=== PATIENT | female | born 1960 | race Caucasian/White ===

== ENCOUNTER → 2019-06-14 09:31 | Outpatient (CLI) | payer OTHER, SELFPAY ==
[2019-06-14 10:24] LABS: Hemoglobin A1C% w Est Avg Glu 7.7 % (4.0-6.0)
[2019-06-14 10:43] LABS: Alanine Aminotransferase 20 IU/L (9-52); Albumin 4.4 g/dL (3.5-5.0); Albumin Globulin Ratio 1.4 (1.0-2.8); Alkaline Phosphatase 82 U/L (38-126); Aspartate Aminotransferase 22 IU/L (14-36); BUN Creatinine Ratio 23.3 (6-22); Bilirubin Total 0.4 mg/dL (0.2-1.3); Blood Urea Nitrogen 14 mg/dL (7-17); Calcium 9.8 mg/dL (8.4-10.2); Carbon Dioxide 27 mmol/L (22-32); Chloride 101 mmol/L (98-107); Estimated Glomerular Filt Rate > 60.0 mL/min (>60); Globulin 3.1 g/dL (1.7-4.1); Glucose 148 mg/dL (80-110); HEMOLYSIS < 15 (0-50); Potassium 4.1 mmol/L (3.4-5.1); Sodium 137 mmol/L (137-145); Total Protein 7.5 g/dL (6.3-8.2)
== END ==
PROVIDERS: Nurse Practitioner Family; PCP Physician Assistant; Visit Provider Physician Assistant
DX: E11.65 Type 2 diabetes mellitus with hyperglycemia (principal); E03.9 Hypothyroidism, unspecified; I10 Essential (primary) hypertension
CPT/HCPCS: 36415; 80053; 83036; 84443

== ENCOUNTER → 2019-11-27 11:12 | Outpatient (CLI) | payer OTHER, SELFPAY ==
--- NOTE | 2019-11-27 11:14 | DI.RAD.S_ITS ---
PROCEDURE: XR LUMBAR SPINE 2-3V INDICATIONS: Persistent lower back pain TECHNIQUE: 3 views of the lumbar spine were acquired. COMPARISON: None. FINDINGS: Bones: 5 vag-fxu-[id number] vertebrae are present. No vertebral body compression fractures. No suspicious bony lesions. Moderate to severe disc space narrowing is seen at L5-S1, with associated endplate irregularity and sclerosis. Bridging osteophytes are seen at this level. Mild disc space narrowing is seen at the L1-L2 level and the L4-L5 level. Mild levoconvex scoliotic curvature is noted. No focal AP alignment abnormality is seen. Lower lumbar spine facet arthropathy is seen. Soft tissues: Overlying bowel gas pattern is normal. No suspicious soft tissue calcifications. Atherosclerotic calcification is noted. Cholecystectomy clips are seen. IMPRESSION: Focal L5-S1 degenerative change is seen, with milder degenerative changes seen elsewhere. Dictated by: Anatoliy Siddiqui M.D. on 11/27/2019 at 10:30 Approved by: Anatoliy Siddiqui M.D. on 11/27/2019 at 10:32
== END ==
PROVIDERS: PCP Family Medicine; Referring Provider Family Medicine; Visit Provider Family Medicine
DX: M54.32 Sciatica, left side (principal); M47.817 Spondylosis without myelopathy or radiculopathy, lumbosacral region
CPT/HCPCS: 72100

== ENCOUNTER → 2020-03-06 15:36 | Outpatient (CLI) | payer OTHER, SELFPAY ==
--- NOTE | 2020-03-06 15:38 | DI.RAD.S_ITS ---
PROCEDURE: XR KNEE RT 3V INDICATIONS: Progressive bilateral knee pain TECHNIQUE: 3 views of the knee were acquired. COMPARISON: None. FINDINGS: Bones: Mild/moderate degenerative changes of the right knee are best appreciated within the patellofemoral compartment. Marginal osteophytes are noted. There is no acute fracture or dislocation. No suspicious osseous lesion is identified. Soft tissues: No joint effusion. Chondrocalcinosis of the knee is present. IMPRESSION: 1. Mild to moderate degenerative changes of the right knee. 2. Chondrocalcinosis of the knee may be senescent. Please correlate clinically to exclude the possibility of calcium pyrophosphate deposition disease. Dictated by: Frank Egan M.D. on 03/06/2020 at 15:06 Approved by: Frank Egan M.D. on 03/06/2020 at 15:07
--- NOTE | 2020-03-06 15:38 | DI.RAD.S_ITS ---
PROCEDURE: XR KNEE LT 3V INDICATIONS: Progressive bilateral knee pain TECHNIQUE: 3 views of the knee were acquired. COMPARISON: None. FINDINGS: Bones: Mild degenerative changes of the left knee are best appreciated within the patellofemoral compartment with developing marginal osteophytes. The medial and lateral joint spaces are well-maintained. Soft tissues: There is a small left knee joint effusion. No definite chondrocalcinosis is appreciated. IMPRESSION: 1. Mild degenerative changes of the left knee. 2. No definite chondrocalcinosis. 2. Small left knee joint effusion. Dictated by: Frank Egan M.D. on 03/06/2020 at 15:07 Approved by: Frank Egan M.D. on 03/06/2020 at 15:08
== END ==
PROVIDERS: PCP Family Medicine; Referring Provider Family Medicine; Visit Provider Family Medicine
DX: M25.561 Pain in right knee (principal); M25.562 Pain in left knee; M11.261 Other chondrocalcinosis, right knee
CPT/HCPCS: 73562

== ENCOUNTER → 2021-03-29 13:23 | Outpatient (CLI) | payer OTHER, SELFPAY ==
--- NOTE | 2021-03-29 | DI.ECHO.S_ITS ---
[facility]---------[facility] +---------+ : : [address] : : : : [id number] : : : : Phone: [phone] Echocardiogram Report + + :Name: DARIN BARCLAY Study Date: 03/29/2021 Height: 67 in : :[facility] ReadingLocation: Weight: 207 lb : : Gender: Female BSA: 2.1 m2 : :: 1960 Age: 60 yrs BP: 172/75 mmHg: :Reason For Study: Edema : :Ordering Physician: : :ROXANA DE ANDA Performed By: Srikanth Meredith : :Referring: ROXANA DE ANDA : + + Interpretation Summary Normal left ventricle size with hyperdynamic function and ejection fraction 70-75%. Mild mitral annular calcification. No valvular regurgtiation. Procedure: A two-dimensional transthoracic echocardiogram with color flow and Doppler was performed. The study quality was technically adequate. There is no prior echocardiogram noted for this patient. The patient was in sinus rhythm with heart rates between 74-84 bpm during the exam. Left Ventricle: The left ventricle is normal in size and wall thickness. The left ventricle is hyperdynamic. The ejection fraction is estimated to be 70- 75%. There are no focal wall motion abnormalities. Diastolic function could not be accurately assessed due to unobtainable data. Right Ventricle: The right ventricle is normal in size and function. Atria: Both atria are normal in size. There is no Doppler evidence for an interatrial shunt. Mitral Valve: There is mild mitral annular calcification. There is no mitral regurgitation noted. Aortic Valve: The aortic valve is normal in structure and function. No aortic regurgitation is present. Tricuspid Valve: The tricuspid valve is normal in structure and function. No tricuspid regurgitation. Pulmonary artery pressures cannot be estimated because of the lack of a measurable TR jet velocity. Pulmonic Valve: The pulmonic valve is not well seen, but is grossly normal. There is no pulmonic valvular regurgitation. Great Vessels: The aortic root is normal size. The dimensions of the ascending aorta are normal. The inferior vena cava was not visualized. Pericardium/ Pleura There is no pericardial effusion. There is no pleural effusion. MMode/2D Measurements & Calculations LVIDd: 4.3 cm LVOT diam: 2.1 cm LVIDs: 2.3 cm Ao root diam: 3.0 cm FS: 46.5 % asc Aorta Diam: 2.9 cm IVSd: 0.96 cm LVPWd: 0.83 cm LV shah. diameter/BSA (cm/m^2): 2.1 LV sys. diameter/BSA (cm/m^2): 1.1 LA dimension: 2.9 cm RA long axis: 4.8 cm LA A2 area: 14.7 cm2 LA A4 area: 13.9 cm2 LA length (vol): 4.6 cm LA vol: 37.4 ml LA vol index: 18.2 ml/m2 TAPSE_phl: 2.2 cm Doppler Measurements & Calculations Ao V2 max: 165.0 cm/sec LVOT Max Justo: 155.0 cm/sec Ao V2 mean: 109.0 cm/sec LV V1 max P.6 mmHg Ao max P.0 mmHg LV V1 VTI: 27.1 cm Ao mean P.0 mmHg TIO(I,D): 3.3 cm2 Ao V2 VTI: 28.3 cm TIO(V,D): 3.3 cm2 sev ratio: 0.96 TIO indexed to BSA (cm^2/m^2): 1.6 MV E max justo: 72.2 cm/sec PA V2 max: 133.0 cm/sec MV A max justo: 116.0 cm/sec PA V2 mean: 103.0 cm/sec MV E/A: 0.62 PA mean P.0 mmHg Med Peak E' Justo: 7.6 cm/sec PA pr(Accel): 49.3 mmHg E/E' med: 9.5 Lat Peak E' Justo: 9.5 cm/sec E/E' lat: 7.6 E/e' average: 8.5 MV dec time: 0.33 sec SV(LVOT): 93.9 ml AV VR_phl: 0.94 TIO(VTI)/BSA_phl: 1.6 MV P1/2t-pr_phl: 97.0 msec Electronically signed by: Apolinar Frost on Reading Physician:03/30/2021 02:15 PM
== END ==
PROVIDERS: PCP Internal Medicine; Referring Provider Internal Medicine; Visit Provider Internal Medicine
DX: R01.1 Cardiac murmur, unspecified (principal); R60.9 Edema, unspecified
CPT/HCPCS: 93306

== ENCOUNTER 2023-11-16 08:14 | Day surgery (SDC) | payer OTHER, SELFPAY ==
[2023-11-14 15:17] VITALS: BMI 28.5
[2023-11-16] VITALS (15 sets, daily range): BP systolic 108–170; BP diastolic 33–92; PULSE 66–83; RESP 10–20; TEMP 36.3–37.4; O2SAT 94–100; BMI 28.5; BMI 31.1
[2023-11-16] MEDS: LACTATED RINGERS 1,000 ML 100 ML IV ×2 (08:41→15:55)
[2023-11-16] MEDS: ALBUTEROL/IPRATROPIUM 3 ML AMPUL INH (09:42)
--- NOTE | 2023-11-16 10:34 | PM.PREOP ---
Pre-operative Note COVID-19 COVID-19 status: Not tested Interval Note History & Physical reviewed/Exam performed by Physician: Yes Changes to H&P: No
[2023-11-16] MEDS: CEFAZOLIN 2 GM/100 ML PREMIX 100 ML IV (11:35)
--- NOTE | 2023-11-16 12:32 | SUR.OPER ---
Lithotomy on padded OR bed. [place] Pad Positioner under torso. Head on pillow, arms padded and tucked at sides. Legs secured in padded yellow fins stirrups.
[2023-11-16] MEDS: BUPIVACAINE 0.25% (PF) 30 ML, EPINEPHrine 0.15 MG INJ (12:43)
--- NOTE | 2023-11-16 14:05 | P.OP_ITS ---
Operative Date/Time/Diagnoses Date of procedure: 11/16/23 Time of procedure: 11:45 Pre-op diagnosis: Vaginal vault prolapse following hysterectomy Cystocele Stress urinary incontinence Post-op diagnosis: same Procedure & Clinicians Procedure: Procedures Operation Date: 11/16/23 09:45 Actual Procedure Side Surgeon p Bilateral sacral spinous suspension of the vaginal vault Mikael Finley MD s Anterior Colporrhaphy Mikael Finley MD s Mid-urethral sling placement with cystoscopy Mikael Finley MD Indications: Muna is a 63-year-old 11 para 9, LMP in 1998 at the time of her hysterectomy, who presents for evaluation with the aforementioned complaints. She experienced menarche at age 9 and had regular predictable periods with 9 vaginal births. Her largest infant was 7 lb 6 oz in her smallest was 6 lb 5 oz. following hysterectomy with placement of a ?pig skin sling? in 1998 the patient was initiated on bioidentical hormone therapy (E2/T troches) which was stopped about 4 years ago after her sister developed breast cancer. Since that time the patient has had progressive vaginal dryness with intercourse, and urge incontinence. In addition she has over roughly the same period of time developed a sensation of bulging and increasing vaginal pressure. She has also lost a significant amount of clitoral sensitivity and between vaginal dryness and loss of sensitivity, intercourse has become much less frequent for her and her . She also has some urge incontinence which has worsened over the last several years and has difficulty fully emptying her bladder but denies CHUYITA. Patient was successfully fitted with a 4. Ring pessary with support but after using the pessary for short time, the patient decided that she would instead prefer to have surgical correction of her prolapse. After our discussions it was decided to proceed with scheduling laparoscopic uterosacral suspension of the vaginal vault along with anterior colporrhaphy and placement of a mid urethral sling with cystoscopy. She presents today for her scheduled surgery. Surgeon: Mikael Finley Title Closer: Janneth Chavarria Anesthesia Type: General Operative Notes Findings: Stage II vaginal vault prolapse with stage III cystocele. Atrophic vaginal mucosa. The bladder is normal to cystoscopic evaluation. Closure Type: primary Specimen(s): none Applied: catheter and other (Vaginal packing) Estimated blood loss (mL): 100 Blood products transfused: none Procedure in detail: With the patient under satisfactory general anesthesia in the modified dorsal lithotomy position, an examination under anesthesia was conducted and the decision was made to proceed with transvaginal apical suspension using sacrospinous ligament fixation. The perineum, vagina, and lower abdomen were then prepped and draped in the usual manner for vaginal surgery and TVT placement. A pre-surgical safety time-out was then taken in accordance with [facility] Main OR protocols. A weighted speculum was placed in the vagina and the vaginal apex to be suspended was identified by visual examination. Identifying sutures of 0 Vicryl were placed at the left and right side of the vaginal apex for subsequent identification of fixation points. The midline of the posterior vaginal mucosa was then infiltrated with 0.25% Marcaine with epinephrine and a midline longitudinal incision was made of the mucosa. Using a combination of both sharp and blunt dissection, the perirectal space was entered on both sides and the sacrospinous ligament clearly identified by palpation and visualization. 0 Prolene was used to transfix the uterosacral ligament in its mid 3rd on both sides using a Capio device. The vaginal mucosa and muscularis were then secured with a transfixing stitch and using a brad stitch the left and right angles of the vaginal apex were elevated up to the sacral spinous ligament. The 0 Prolene was then tied on both sides and the redundant portion of suture trimmed. The posterior vaginal wall incision was then closed with 0 Vicryl in a running interlocking stitch. Attention was then turned to the cystocele which was significantly reduced by elevation of the vaginal vault and the mucosa under the midline mid urethra was infiltrated with Marcaine with epinephrine and a small linear incision was made in the mucosa overlying the mid urethra. Metzenbaum scissors were used to dissect a tunnel on either side of the urethra or introduction of the tension-free vaginal tape. For this TVT procedure, a UroCure retropubic TVT was used. The TVT needle was 1st placed on the right side followed by the left. The Ibrahim catheter was removed and cystoscopy of the bladder performed. Careful inspection of the entire bladder revealed no abnormalities and there was no evidence of bladder injury from passing of the TVT needles. Once bladder integrity was assured, the Ibrahim catheter was replaced and the TVT was passed up through the suprapubic skin 1st on the right side than the left. The TVT was appropriately tensioned and the sleeve removed from both sides of the TVT. The mucosa was then closed with 2-0 Vicryl in a running interlocking stitch. Attention was then turned to perfo rmance of the anterior colporrhaphy. The midline of the vaginal mucosa underlying the cystocele was infiltrated with Marcaine and epinephrine. A midline incision of the vaginal mucosa was then made and carried upwards to near the vaginal apex. Dissection of the bladder base off of the vaginal mucosa and muscularis was then accomplished with a combination of both sharp and blunt dissection. A two-layer plication of the pubo-cervical fascia and bladder muscularis was then accomplished using 0 Vicryl suture. The redundant vaginal mucosa was then excised with Metzenbaum scissors and the vaginal mucosa was closed with a running interlocking stitch of 2-0 Vicryl. Hemostasis was excellent and a moistened vaginal pack was placed. Patient was then awakened from anesthesia and transported the PACU for a period of observation and recovery after having tolerated the procedure well. Complications: none Post-operative Condition: stable Disposition: PACU Plan for aftercare: Routine postoperative care
[2023-11-16] MEDS: ONDANSETRON 4 MG/2 ML INJ IV (14:19)
[2023-11-16] MEDS: HYDROMORPHONE 1 MG INJ IV ×2 (14:28→14:34)
[2023-11-16] MEDS: FAMOTIDINE 20 MG/2 ML VIAL IV (14:52)
[2023-11-16] MEDS: OXYCODONE IR 5 MG TABLET PO ×3 (14:55→21:03)
[2023-11-16] MEDS: KETOROLAC 30 MG/ML VIAL IV ×2 (15:55→21:02)
--- NOTE | 2023-11-16 16:12 | PC.NURSE ---
Pt to room 216 via bed from PACU. Spouse at the bedside. Pt is awake and oriented. Denies nausea or shortness of breath. IV infusing as ordered. SCD's on and running. Bed alarm on for safety. Pt agrees to call for assistance as needed and to not get up without help. Pt oriented to room, call light, bed controls, and tv controls. Pt given water to drink and a snack. Ice pack in place over lower abdomen, rahman draining clear yellow urine.
[2023-11-16] MEDS: ACETAMINOPHEN 325 MG TABLET 650 MG PO (17:06)
[2023-11-16] MEDS: DOCUSATE 100 MG CAPSULE 200 MG PO (21:02)
[2023-11-16] MEDS: METFORMIN XR 500 MG TABLET 1000 MG PO (21:02)
[2023-11-16] MEDS: TRAZODONE 50 MG TABLET 100 MG PO (21:03)
[2023-11-16] MEDS: INSULIN GLARGINE 100 UNIT/ML 3ML PEN 18 UNIT SUBCUT (21:07)
[2023-11-17] VITALS: BP 135/48; PULSE 56; RESP 12; TEMP 36.6; O2SAT 93
[2023-11-17] MEDS: LACTATED RINGERS 1,000 ML 100 ML IV (02:13)
[2023-11-17] MEDS: KETOROLAC 30 MG/ML VIAL IV ×2 (03:12→09:10)
[2023-11-17 03:20] VITALS: BP 163/69; PULSE 73; RESP 19; TEMP 36.2; O2SAT 96
[2023-11-17 05:31] LABS: Add Manual Diff / Slide Review NO; Basophils Absolute Auto 0 /uL (0-100); Basophils Percent Auto 0.2 % (0-2); Eosinophils Absolute Auto 0 /uL (0-450); Eosinophils Percent Auto 0.2 % (2-4); Hematocrit 28.3 % (36-46); Hemoglobin 9.8 g/dL (12.0-16.0); Lymphocytes Absolute Auto 1800 /uL (1100-4500); Lymphocytes Percent Auto 18.3 % (25-40); Mean Corpuscular HGB Conc 34.5 % (30-36); Mean Corpuscular Hemoglobin 28.6 PG (26-34); Mean Corpuscular Volume 82.8 fL (80-100); Monocytes Absolute Auto 500 /uL (0-900); Monocytes Percent Auto 4.8 % (3-14); Neutrophils Absolute Auto 7700 /uL (1500-7000); Neutrophils Percent Auto 76.5 % (50-75); Platelet Count 239 X10^3/uL (150-400); Red Blood Cell Count 3.42 X10^6/uL (4.0-5.2); Red Cell Distribution Width 13.7 % (11.6-14.8)
[2023-11-17] MEDS: ACETAMINOPHEN 325 MG TABLET 650 MG PO ×2 (06:30→10:46)
--- NOTE | 2023-11-17 07:06 | PC.NURSE ---
Ibrahim removed @ 0330 Voided @ 0600 : 125cc yellow urine w/ small blood clot PVR: <10cc
[2023-11-17 07:57] VITALS: BP 144/56; PULSE 61
[2023-11-17 08:37] VITALS: TEMP 36.6; O2SAT 95
[2023-11-17] MEDS: DOCUSATE 100 MG CAPSULE 200 MG PO (09:05)
[2023-11-17] MEDS: METFORMIN XR 500 MG TABLET 1000 MG PO (09:05)
[2023-11-17] MEDS: VALSARTAN 80 MG TABLET PO (09:06)
[2023-11-17] MEDS: SITAGLIPTIN 50 MG TABLET 100 MG PO (09:06)
--- NOTE | 2023-11-17 10:39 | P.DS_ITS ---
History of Present Illness History of Present Illness Date Patient Seen: 11/17/23 Time Patient Seen: 10:04 Chief complaint: Laparoscopy, Diagnostic, PROCESS PROJECT ENGINEER/Anterior Colporrhaphy Narrative: Muna is a 63-year-old 11 para 9, LMP in 1998 at the time of her hysterectomy, who presents for evaluation with the aforementioned complaints. She experienced menarche at age 9 and had regular predictable periods with 9 vaginal births. Her largest was 7 lb 6 oz in her smallest was 6 lb 5 oz. following hysterectomy with placement of a ?pig skin sling? in 1998 the patient was initiated on bioidentical hormone therapy (E2/T troches) which was stopped about 4 years ago after her sister developed breast cancer. Since that time the patient has had progressive vaginal dryness with intercourse, and urge incontinence. In addition she has over roughly the same period of time developed a sensation of bulging and increasing vaginal pressure. She has also lost a significant amount of clitoral sensitivity and between vaginal dryness and loss of sensitivity, intercourse has become much less frequent for her and her . She also has some urge incontinence which has worsened over the last several years and has difficulty fully emptying her bladder but denies CHUYITA. Patient was successfully fitted with a 4. Ring pessary with support but after using the pessary for short time, the patient decided that she would instead prefer to have surgical correction of her prolapse. After our discussions it was decided to proceed with scheduling laparoscopic uterosacral suspension of the vaginal vault along with anterior colporrhaphy and placement of a mid urethral sling with cystoscopy. She is admitted for her scheduled surgery. Discharge Providers Provider Date of admission: 11/16/2023 Discharge Date: 11/17/23 Primary care physician: Ana Carl DO Discharge provider: Mikael Finley MD Summary Hospital Course Discharge Diagnosis: Vaginal vault prolapse following hysterectomy Cystocele Stress urinary incontinence Hospital Course: On the day of admission, the patient underwent an uneventful sacral spinous fixation of the vaginal vault, placement of mid urethral sling with cystoscopy, and anterior colporrhaphy. Details of the procedure well summarized on my operative note of that date. Following surgery the patient has done extremely well with prompt return of bowel and bladder function, she is ambulating independently, tolerating regular diet, and her pain is well controlled with oral pain medications. She will be discharged at this time to home in an afebrile normotensive condition after counseling regarding precautionary symptoms, limitations of activity, medications, and plans for follow-up which will be in 2 weeks. Medications at discharge will include resumption of all preadmission medications as well as oxycodone 5 mg every 6 hours as needed for pain, dispense 10 with no refills, Cipro 500 mg p.o. b.i.d. x5 days for UTI prophylaxis following catheterization, and estradiol vaginal cream 0.01% to be applied 1 g PV HS 3 nights weekly. Status at Discharge Cognitive/behavioral status at discharge: oriented Functional status at discharge: independent ambulation Overall status at discharge: patient is progressing back to baseline Time Spent with Patient Time spent: Less than 30 minutes Exam Vital Signs (past 8 hours): - 11/17/23 03:20 11/17/23 07:57 11/17/23 08:37 Temperature 97.2 F L 97.9 F Pulse Rate 73 61 Respiratory Rate 19 Blood Pressure 163/69 H 144/56 H Pulse Oximetry 96 95 Oxygen Flow Rate 0 0 Oxygen Delivery Method Room Air Oxygen Flow Rate 0 Const General: cooperative and comfortable Nutritional Appearance: average body habitus Orientation: alert and oriented x3 HENMT Head: normal to inspection, atraumatic and abrasion Ears: hearing grossly normal bilaterally Face and sinus: face symmetric Eyes General: appearance normal, both eyes and all related structures Conjunctivae: conjunctivae normal Sclera: sclerae normal EOM: EOM intact bilaterally Neck Neck: normal visual inspection Resp Effort & Inspection: normal respiratory effort and able to speak in complete sentences Auscultation: clear to auscultation bilaterally Cardio Rate: regular rate Rhythm: regular rhythm Heart Sounds: S1 normal, S2 normal and no murmurs GI Inspection: normal to inspection Palpation: soft, no hepatosplenomegaly and tender (Mild, diffuse postsurgical tenderness) External Female Exam: other (No significant bleeding noted) Extrem General: no calf tenderness Psych Appearance: grossly normal Mental Status: mental status grossly normal Speech and Movement: speech and movement normal Mood: congruent mood Affect: normal affect Attitude: cooperative Thought Process: normal Thought Content: normal Judgment: judgment good Objective Labs 11/17/23 04:50 Labs: Laboratory Results - last 24 hr 11/17/23 04:50 WBC 10.0 RBC 3.42 L Hgb 9.8 L Hct 28.3 L MCV 82.8 MCH 28.6 MCHC 34.5 RDW 13.7 Plt Count 239 Neut % (Auto) 76.5 H Lymph % (Auto) 18.3 L [place] % (Auto) 4.8 Eos % (Auto) 0.2 L Baso % (Auto) 0.2 Neut # (Auto) 7700 H Lymph # (Auto) 1800 [place] # (Auto) 500 Eos # (Auto) 0 Baso # (Auto) 0 PFSH Medical History (Updated 08/23/23 @ 16:26 by Mikael Finley MD) Insomnia Bilateral knee pain Acne rosacea Chicken pox (~1959) Thyroid nodule Diabetes (~2003) Surgical History (Updated 11/14/23 @ 15:22 by Daisy Lu RN) History of hysterectomy Anesthesia History of toe surgery (~2015) History of bladder surgery History of cholecystectomy (~1991) Family History (Updated 04/16/19 @ 14:52 by Zofia Lofton) Father History of heart disease Hypertension Mother Diabetes mellitus Brother History of heart disease Hypertension Brother History of heart disease Hypertension Social History household members: spouse Smoking Status: Never smoker second hand exposure: No alcohol intake: former substance use type: does not use Discharge Assessment & Plan Assessment and Plan Assessment: Vaginal vault prolapse following hysterectomy Cystocele Stress urinary incontinence Plan of Treatment: Routine postoperative care with follow-up planned for 2 weeks postop Discharge Plan Discharge Plan Patient Disposition: Home Provider Discharge Comment: Please review the written instructions you received when you were discharged from the hospital. Your follow-up is scheduled for 2 weeks after your surgery and I look forward to seeing you then. If however in the meanwhile you have any issues, concerns, or questions, please contact me through the office phone at [phone], or via the patient. Discharge orders & Medications Discharge Orders: Discharge (Order); Ordered 11/17/23 Ordered By: Mikael Finley Prescriptions: New oxycodone 5 mg tablet 5 mg PO Q6H PRN (Reason: pain) Qty: 10 0RF ciprofloxacin HCl 500 mg tablet 500 mg PO BID 5 Days Qty: 10 0RF estradiol 0.01 % (0.1 mg/gram) cream 1 g vaginal 3XW Qty: 42.5 12RF Continued naproxen [Naprosyn] 500 mg tablet 500 mg PO BID PRN (Reason: pain) Qty: 180 1RF multivitamin tablet 1 tab PO DAILY (DME) Glucose Test Strips Qty: 100 3RF Rx Instructions: Test blood sugar once daily Vitamin A, D & K See Rx Instructions .ROUTE .COMPLEX Rx Instructions: 1 gelcap PO DAILY Vitamin D - 5,000 IU Vitamin A - 5,000 IU Vitamin K - 500 mcg metformin 500 mg tablet extended release 24 hr 500 mg PO BID Levemir FlexPen 100 unit/mL (3 mL) insulin pen 18 unit SUBCUT BEDTIME trazodone 50 mg tablet 100 mg PO QHS PRN (Reason: Sleep) Januvia 100 mg tablet 100 mg PO DAILY valsartan 80 mg tablet 80 mg PO DAILY Ozempic 2 mg/dose (8 mg/3 mL) pen injector 2 mg SUBCUT QWEEK Trimo-Fowler Jelly 0.025-0.01 % gel See Rx Instructions vaginal .COMPLEX Qty: 113.4 12RF Rx Instructions: Apply 1 full applicator vaginally each week. valsartan 80 mg tablet 80 mg PO DAILY Follow up/Referrals: Ana Carl DO [Primary Care Provider] - Mikael Finley MD [Physician] - Diet/Activity/Treatments Diet: Diet as Tolerated Activity: As tolerated Other treatments: Lnjb-mwu-jxewnso Tylenol and/or ibuprofen may be used pain relief. Otsn-ucb-faupudj stool softeners and/or MiraLax may be used as needed for constipation. Skin/Wound/Dressing Care Report to your healthcare provider any signs of infection, such as:: chills, fever, increased pain, unusual drainage and unusual redness Visit Report/Discharge Packet Instructions: DI for Cystocele and Rectocele Repair, DI for Prescription Opioid Use Stand Alone Forms: Surgery Discharge Print Language: Serbian Discharge Data Primary Care Provider: Ana Carl Attending Provider: Mikael Finley Quality VTE Deep Vein Thrombosis/Pulmonary Embolism Present on Admission: No
--- NOTE | 2023-11-17 12:21 | PC.NURSE ---
Patient is A&OX4, VSS, afebrile on RA. She reports pain tolerable and has no bleeding on kandice pad. Ibrahim had been removed by noc shift and she is voiding adequately. She tolerates breakfast well and ambulates in the room independently. MD at bedside this a.m. at 10 a.m. clearing patient for discharge home after removing vaginal packing. She verbalizes understanding of medications, activity, s/sx of infection as well as follow up appointment in 2 weeks. She is escorted by [employer]UCATION PARAPROFESSIONAL via w/ch to private vehicle with and all of her belongings at 1120 a.m.
== END 2023-11-17 11:20 | disposition home or self-care (01) ==
LOC: OR 08:16 → AC 09:30
PROVIDERS: PCP Family Medicine; Referring Provider Obstetrics & Gynecology; Visit Provider Obstetrics & Gynecology
PROC: (CPT 49320; principal; 2023-11-16 09:45)
PROC: (CPT 57282; 2023-11-16 09:45)
PROC: 0TSD0ZZ Reposition Urethra, Open Approach (ICD-10-PCS; CPT 57282; 2023-11-16 09:45)
DX: N99.3 Prolapse of vaginal vault after hysterectomy (principal); N39.3 Stress incontinence (female) (male)
CPT/HCPCS: 57282; 57288; 57240; 36415; 82962; 85025; C1771; J0171; J0690; J1100; J1170; J1885; J2405; J2704; J3010; J3490